=== PATIENT | male | born 1980 | race Caucasian/White ===

== ENCOUNTER 2020-11-28 19:42 | Emergency (ER) | payer BC ==
[~2020-11-28] VITALS: Ht 175.3 cm; Wt 99.8 kg
[~2020-11-28 19:42] MED LIST: ALBU90OI61 INH; Aerochamber1 EACH INH; Augmentin 875-1 EACH PO; CODGUAEL PO; CYCL10 PO; Duoneb 2.5-0.5 M3 ML INH; Flovent 44 mc10.6 GM INH; KEFLEX500 MG PO; MONT10T PO; Monodox100 MG PO; Naprosyn500 MG PO; Norco 5-325 Ta1 EACH PO; Prednisone20 MG PO; Ventolin Soln3 ML INH; Ventolin/Prove6.7 GM INH; Zithromax250 MG PO
== END 2020-11-28 21:35 | disposition home or self-care (01) ==
LOC: ER 19:42
DX: I10 Essential (primary) hypertension (principal); R09.81 Nasal congestion; J45.909 Unspecified asthma, uncomplicated; Z79.899 Other long term (current) drug therapy
CPT/HCPCS: 99282

== ENCOUNTER 2024-10-09 07:39 | Emergency (ER) | payer BC ==
[~2024-10-09] VITALS: Ht 175.3 cm; Wt 113.4 kg
[2024-10-09 08:46] VITALS: BP 162/99
[2024-10-09] MEDS ORDERED: Ketorolac Tromethamine 15mg Vial IM ONE (10:30)
[2024-10-09] MEDS ORDERED: EUTHYROX125 MC1 PO (10:33)
[2024-10-09] MEDS ORDERED: ESCI10 PO (10:33)
[2024-10-09] MEDS ORDERED: CYCL10 PO (10:53)
== END 2024-10-09 11:01 | disposition home or self-care (01) ==
LOC: ER 07:39
DX: S39.012A Strain of muscle, fascia and tendon of lower back, initial encounter (principal); J45.909 Unspecified asthma, uncomplicated; I10 Essential (primary) hypertension; X50.1XXA Overexertion from prolonged static or awkward postures, initial encounter; Z79.899 Other long term (current) drug therapy
CPT/HCPCS: 96372; 99283-25; J1885